=== PATIENT | female | born 1955 | race Caucasian/White ===

== ENCOUNTER → 2017-01-23 | Outpatient (REF) | payer MEDICARE ==
[~2017-01-23] MED LIST: /CELE20CA PO; /PRAV20TA PO; /WARF25TA PO; ASPI81TA85 PO; CALC25TA PO; CALCTAB68 PO; DOLO10TA PO; FISH1200 PO; FISHCAP4 PO; FLEX10TA2 PO; GABA300C2 PO; GLUC500T PO; HAIRTAB5 PO; LIDO1DIS2 TOP; LYRI75CA PO; METH10TA2 PO; OMEP40CA2 PO; OXYC30TA4 PO; PAIN RELIEVER TOP; PERC7.5T12 PO; PERCOCET PO; PRIL40CA PO; SENN8.6T8 PO; STOOTAB3 PO; TOPA200T PO; TOPIPOW3 OR; TYLE325T5 PO; VITMTA PO; VOLT1GEL2 TOP; [UNRECOGNIZED DRUG - CODE] TOP; [UNRECOGNIZED DRUG - OTHER] OR
== END ==
LOC: M SFHCWAGY 11:28
PROVIDERS: ATTEND Nurse Practitioner Family
DX: L29.8 Other pruritus (principal)
CPT/HCPCS: 81002; 87070; 87077; 87186; 87210; G0463